=== PATIENT | male | born 1975 | race African-American/Black ===

== ENCOUNTER 2017-05-23 12:00 | Emergency (ER) | payer SELFPAY ==
[~2017-05-23 12:00] MED LIST: ALBU8I INH; CHLOTAB5 PO; PRED50 PO; ZITH250T PO
--- NOTE | 2017-05-23 13:30 | PD ---
HPI . rash for 3 mts Chief Complaint: rash for 3 mts Time Seen by Provider: 12:18 Travel History International Travel<30 days: No Contact w/Intl Traveler<30days: No Traveled to known affect area: No History of Present Illness HPI 42-year-old male with history of eczema here with complaints of rash that has been present for the past 3 months roughly. 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 He says he was temporarily out of a job and the rash subsided. He is now working with [employer] and the rash has returned. He thinks this may be a consequence of something he is coming in contact with. He denies any fever or chills. He has no other complaints. Unfortunately he does not have a primary care provider. Vital signs: Temperature 97.9, heart rate 97, respiratory rate 15, blood pressure 156/90, O2 sat 99% PFS Social History Alcohol Use: Yes Tobacco Use: Yes Allergies-Medications (Allergen,Severity, Reaction): Coded Allergies: No Known Allergies (Verified , 10/25/13) Reported Meds & Prescriptions Reported Meds & Active Scripts Active Ventolin Hfa (Albuterol Sulfate) 8 Gm Aero 2 Puff INH Q4 PRN * SHAKE WELL BEFORE USE * Deltasone 50 Mg Tab (Prednisone) 50 Mg Tab 75 Mg PO DAILY 5 Days Zithromax Z-Liang (Azithromycin) 250 Mg Tab 250 Mg PO DIRECTED 500 MG (2 TABLETS) PO ON DAY 1, THEN 250 MG (1 TABLET) PO ON DAYS 2 TO 5. Reported Kristi-[place] Plus Cold (Chlorpheniramine-Phenylephrine) Pls Cold Tab 1 Pack PO BID PRN Review of Systems General / Constitutional: No: Fever Eyes: No: Visual changes HENT: No: Headaches Cardiovascular: No: Chest Pain or Discomfort Respiratory: No: Shortness of Breath Gastrointestinal: No: Abdominal Pain Genitourinary: No: Dysuria Musculoskeletal: No: Pain Skin: Positive Rash, Positive Itching, Positive Dryness Neurologic: No: Weakness Psychiatric: No: Depression Endocrine: No: Polydipsia Hematologic/Lymphatic: No: Easy Bruising Physical Exam Narrative GENERAL: AAO x 3, no acute distress, Well-nourished, well-developed patient. SKIN: Warm and dry. Visible rash scattered over the entire upper extremities bilaterally, small amount on the neck, small amount on the abdomen. This is a maculopapular rash, there are scattered excoriations. There is no significant edema, erythema or drainage. Several of the lesions are coalesced together. HEAD: Normocephalic and atraumatic. EYES: No scleral icterus. No injection or drainage. ENT: No nasal drainage noted. Mucous membranes pink. Airway patent. NECK: Supple, trachea midline. No JVD. CARDIOVASCULAR: Regular rate and rhythm without murmurs, gallops, or rubs. RESPIRATORY: Breath sounds equal bilaterally. No accessory muscle use. No rhonchi or rales. GASTROINTESTINAL: Visual inspection normal EXTREMITIES: No cyanosis or edema. BACK: Nontender without obvious deformity. No CVA tenderness. NEURO: CN II-12 intact, PSYCH: AAO x 3, normal affect. MDM Medical Decision Making Medical Screen Exam Complete: Yes Emergency Medical Condition: Yes Medical Record Reviewed: Yes Differential Diagnosis Contact dermatitis, eczema, less likely cellulitis, psoriasis Narrative Course 42-year-old male here with a rash that he's had for the past 3 months. On examination this appears to be a contact dermatitis. This is likely related to the substances he is working with. This is not an infection. I've had a discussion with the patient regarding this rash. I recommend he follow-up with a city superintendent of schools for further testing with a skin biopsy. Ultimately he will need to refrain from coming in contact with the offending agent. In the interim I will provide him with some prednisone and topical steroid cream. I advised him that this is not a permanent fix. He was understanding. Patient verbalized understanding of instructions, questions were answered, and thanked me for their care. I advised them if their condition worsens, please return to the nearest emergency room for further care. Patient given prednisone 50 mg daily for 5 days. Patient also given triamcinolone cream 0.5% topical application twice daily to affected area. Diagnosis Primary Impression: Contact dermatitis Qualified Codes: L24.9 - Irritant contact dermatitis, unspecified cause Additional Instructions: Please establish a follow-up with the primary care provider. See a city superintendent of schools. Med/Other Pt SpecificInfo: Prescription(s) given Disposition: 01 DISCHARGE HOME Condition: Stable Roxanna Rivero May 23, 2017 13:30
== END 2017-05-23 12:20 | disposition home or self-care (01) ==
LOC: NED 12:00 → NEPD 12:20
DX: L24.9 Irritant contact dermatitis, unspecified cause (principal); F10.10 Alcohol abuse, uncomplicated; F17.290 Nicotine dependence, other tobacco product, uncomplicated
CPT/HCPCS: 99281